=== PATIENT | female | born 1945 | race Asian ===

== ENCOUNTER 2016-11-09 08:07 | Emergency (ER) | payer SELFPAY ==
[~2016-11-09] VITALS: Ht 154.9 cm; Wt 72.6 kg
[2016-11-09 08:12] VITALS: BP_SYST 153
[2016-11-09] MEDS ORDERED: DIPH-TET-PERTUS Vaccine 0.5 ML VIAL (ADACEL) IM ONE (08:30)
[2016-11-09] MEDS ORDERED: BACITRACIN 1 GM OINT TP ONE (08:30)
== END 2016-11-09 09:05 | disposition left against medical advice (07) ==
LOC: SED 08:07
DX: S51.851A Open bite of right forearm, initial encounter (principal); W55.01XA Bitten by cat, initial encounter; Y93.89 Activity, other specified; Y92.89 Other specified places as the place of occurrence of the external cause; Y99.8 Other external cause status
CPT/HCPCS: 99283